=== PATIENT | male | born 1955 ===

== ENCOUNTER 2021-03-17 20:04 | Inpatient (IN) | payer BC ==
[2021-03-17 21:50] LABS: ANION GAP 20.6 mEq/L (7-13)
[2021-03-17] MEDS ORDERED: Iopamidol 612 MG/ML 100 ML Bottle IVPUSH ONE (22:04)
[2021-03-17] MEDS ORDERED: Sodium Chloride 0.9% 1,000 ML IV ONE (22:38)
--- NOTE | 2021-03-17 23:26 | CT ---
PROCEDURE INFORMATION: Exam: CT Abdomen And Pelvis With Contrast Exam date and time: 03/17/2021 10:18 PM Age: 65 years old Clinical indication: Abdominal pain; Generalized; Patient HX: History of renal stone; Additional info: Hernia TECHNIQUE: Imaging protocol: Computed tomography of the abdomen and pelvis with contrast. Radiation optimization: All CT scans at this facility use at least one of these dose optimization techniques: automated exposure control; mA and/or kV adjustment per patient size (includes targeted exams where dose is matched to clinical indication); or iterative reconstruction. Contrast material: ISOVUE 300; Contrast volume: 100 ml; Contrast route: INTRAVENOUS (IV); COMPARISON: CT Abdomen Pelvis w Cont 10/16/2019 1:25 PM FINDINGS: Liver: There is moderate fatty liver replacement. Gallbladder and bile ducts: See "Pancreas" finding. Pancreas: The pancreatic parenchyma is normal in bulk and sharply marginated. Duct is not dilated. No calcifications, masses, or abnormal fluid collections. Spleen: The spleen is normal in size. No splenic mass or abnormal fluid collection. Adrenal glands: There are no adrenal masses. Kidneys and ureters: Normal in parenchymal bulk. No hydronephrosis or asymmetric perinephric stranding. No solid masses. 3 mm nonobstructing stone right renal sinus. No ureteral calculi. Delayed images of the kidneys show symmetric excretion, homogeneous nephrograms, no collecting system filling defects, and no contrast extravasation. Stomach and bowel: Few mildly dilated small bowel loops are present reaching 3.5 cm. Distal small bowel is decompressed. There is a point of transition in the upper midline abdomen from dilated to decompressed small intestine. Small bowel feces sign immediately precedes the point of transition. Dilated small bowel predominantly in a cluster of small bowel loops anterior to the greater omentum almost reaching to the diaphragm. Small amount of gas and stool within large bowel. Appendix: The appendix is seen. It is normal. Intraperitoneal space: No ascites. No abscess. No inflammation within the intra-abdominal fat. No pneumoperitoneum. No mass. Retroperitoneal space: Powerscribe CT gallbladderSpleen is normal in size. No mass or fluid collection. Vasculature: There is atherosclerotic calcification of the aorto-iliac tree. There is no abdominal aortic aneurysm. Lymph nodes: There are no enlarged celiac, mesenteric, periportal, extraperitoneal or inguinal lymph nodes. Urinary bladder: There is no bladder wall thickening, mass, or calculus. Reproductive: Prostate gland is normal in size. The seminal vesicles are unremarkable. Bones/joints: Age appropriate spondylosis. There are no suspicious lytic or osteosclerotic lesions. There are no vertebral compression fractures. Soft tissues: Soft tissues are unremarkable. IMPRESSION: Findings of small bowel obstruction, possibly from internal hernia.
--- NOTE | 2021-03-18 00:30 | EDM.PDOC ---
ED HPI GENERAL MEDICAL PROBLEM - General Chief Complaint: Abdominal Pain Stated Complaint: STOMACH PAIN, SWEATING. Time Seen by Provider: 03/17/21 20:40 Source of Information: Reports: Patient History Limitations: Reports: No Limitations - History of Present Illness INITIAL COMMENTS - FREE TEXT/NARRATIVE: ED with c/o some bloating, intermittent abdominal pain starting Tuesday. 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 Has had some "sweats" no chills. Abdomen Pain Score (Numeric/FACES): 9 - Related Data Allergies Allergy/AdvReac Type Severity Reaction Status Date / Time No Known Allergies Allergy Verified 03/18/21 01:18 Home Meds: Home Meds Glimepiride [Amaryl] 1 mg PO DAILY 01/14/15 [History] Metoprolol Tartrate [Lopressor] 25 mg PO BID 01/14/15 [History] Sertraline [Zoloft] 100 mg PO DAILY 01/14/15 [History] atorvaSTATin [Lipitor] 40 mg PO BEDTIME 01/14/15 [History] hydroCHLOROthiazide [Hydrochlorothiazide] 25 mg PO DAILY 01/14/15 [History] Canagliflozin [Invokana] 100 mg PO DAILY 12/15/16 [History] Cetirizine HCl [Zyrtec] 10 mg PO DAILY PRN 12/15/16 [History] Liraglutide [Victoza] 1.8 mg SQ DAILY 12/15/16 [History] Losartan [Cozaar] 25 mg PO DAILY 12/15/16 [History] Sildenafil [Viagra] 100 mg PO ASDIRECTED 12/15/16 [History] metFORMIN HCl [Metformin HCl] 1,000 mg PO BIDMEALS 12/15/16 [History] sitaGLIPtin Phosphate [Januvia] 100 mg PO BEDTIME 12/15/16 [History] Past Medical History Cardiovascular History: Reports: High Cholesterol, Hypertension Gastrointestinal History: Reports: Hiatal Hernia Genitourinary History: Reports: Chronic Renal Insuffiency, Other (See Below) Other Genitourinary History: NEPHROLITHIASIS Neurological History: Reports: Other (See Below) Other Neuro History: INSOMNIA Psychiatric History: Reports: Anxiety, Other (See Below) Other Psychiatric History: ALCOHOL HABITUATION Endocrine/Metabolic History: Reports: Diabetes, Type II, Obesity/BMI 30+, Other (See Below) Other Endocrine/Metabolic History: BONE METABOLISM DISORDER Social & Family History - Tobacco Use Tobacco Use Status *Q: Never Tobacco User - Caffeine Use Caffeine Use: Reports: Coffee - Recreational Drug Use Recreational Drug Use: No ED ROS GENERAL - Review of Systems Review Of Systems: Comprehensive ROS is negative, except as noted in HPI. ED EXAM, GI/ABD - Physical Exam Exam: See Below Exam Limited By: No Limitations General Appearance: Alert, Mild Distress, Obese Eyes: Bilateral: EOMI Ears: Normal External Exam, Hearing Loss Nose: Normal Inspection Throat/Mouth: Normal Inspection Head: Atraumatic, Normocephalic Neck: Normal Inspection, Supple Respiratory/Chest: No Respiratory Distress, Lungs Clear, Normal Breath Sounds Cardiovascular: Normal Peripheral Pulses, Regular Rate, Rhythm GI/Abdominal Exam: Distended, Tender (mild left lower), Abnormal Bowel Sounds (decreased lower, tympanic upper) Extremities: Normal Inspection Neurological: Alert, Oriented, Normal Cognition Psychiatric: Normal Affect, Normal Mood Skin Exam: Warm, Dry, Intact, Normal Color #1 Interpretation EKG Date: 03/17/21 Time: 20:19 Rhythm: NSR Rate (Beats/Min): 79 [place]: Normal P-Wave: Present QRS: Normal ST-T: Normal Comparison: NA - No Prior EKG Course - Vital Signs Last Recorded V/S: Last Vital Signs Temp 97.2 F 03/18/21 01:05 Pulse 80 03/18/21 01:05 Resp 18 03/18/21 01:05 BP 90/50 L 03/18/21 01:05 Pulse Ox 97 03/18/21 01:05 - Orders/Labs/Meds Orders: Medication Orders Acetaminophen (Acetaminophen 325 Mg Tab) 650 mg NGTUBE Q4H PRN PRN Reason: Pain (Mild 1-3)/fever Dextrose/Water (50% Dextrose In Water 50 Ml Syringe) 50 ml IV Q15M PRN PRN Reason: Hypoglycemia Docusate Sodium (Docusate Sodium 100 Mg Cap) 200 mg PO BID [facility] Last Admin: 03/18/21 01:52 Dose: Not Given Documented by: [id number] Glucagon (Glucagon,Human Recombinant 1 Mg Vial) 1 mg IM Q15M PRN PRN Reason: Hypoglycemia Heparin Sodium (Porcine) (Heparin Sodium 5,000 Units/Ml Vial) 5,000 units SUBCUT BID [facility] Sodium Chloride (Normal Saline) 1,000 mls @ 100 mls/hr IV ASDIRECTED [facility] Last Admin: 03/18/21 01:42 Dose: 100 mls/hr Documented by: [id number] Insulin Human Lispro (Insulin Lispro 100 Units/Ml 3 Ml Vial) 0 unit SUBCUT Q6H [facility]; Protocol Lorazepam (Lorazepam 2 Mg/Ml Sdv) 0 mg IV TITRATE PRN; Protocol PRN Reason: alcohol withdrawal Ondansetron HCl (Ondansetron 4 Mg/2 Ml Sdv) 4 mg IVPUSH Q4H PRN PRN Reason: Nausea/Vomiting Senna/Docusate Sodium (Docusate Sodium/Sennosides 50-8.6 Mg Tab) 2 tab PO BID [facility] Last Admin: 03/18/21 01:53 Dose: Not Given Documented by: [id number] Sodium Chloride (Sodium Chloride 0.9% 10 Ml Syringe) 10 ml FLUSH ASDIRECTED PRN PRN Reason: Keep Vein Open Labs: Laboratory Tests 03/17/21 03/17/21 03/17/21 Range/Units 21:00 21:00 21:00 WBC 10.0 (5.0-10.0) 10^3/uL RBC 6.32 H (4.6-6.2) 10^6/uL Hgb 19.1 H (14.0-18.0) g/dL Hct 53.3 (40.0-54.0) % MCV 84.3 (80-100) fL MCH 30.2 (27.0-34.0) pg MCHC 35.8 H (33.0-35.0) g/dL Plt Count 130 L (150-450) 10^3/uL Neut % (Auto) 74.0 (42.2-75.2) % Lymph % (Auto) 9.3 L (20.5-50.1) % Woods % (Auto) 15.5 H (2-8) % Eos % (Auto) 0.8 L (1.0-3.0) % Baso % (Auto) 0.4 (0.0-1.0) % Sodium 127 L (136-145) mmol/L Potassium 3.6 (3.5-5.1) mmol/L Chloride 88 L (98-107) mmol/L Carbon Dioxide 22 (21-32) mmol/L Anion Gap 20.6 H (7-13) mEq/L BUN 32 H (7-18) mg/dL Creatinine 1.31 H (0.70-1.30) mg/dL Est Cr Clr Drug Dosing 52.08 mL/min Estimated GFR (MDRD) 55 BUN/Creatinine Ratio 24.4 (No establ ref range) Glucose 146 H (70-99) mg/dL Lactic Acid 1.6 (0.4-2.0) mmol/L Calcium 9.1 (8.5-10.1) mg/dL Magnesium (1.8-2.4) mg/dL Total Bilirubin 2.6 H (0.2-1.0) mg/dL AST 30 (15-37) U/L ALT 60 (16-63) U/L Alkaline Phosphatase 91 (46-116) U/L Troponin I High Sens (<=76) pg/mL B-Natriuretic Peptide 19 (0-100) pg/ml Total Protein 8.2 (6.4-8.2) g/dL Albumin 4.0 (3.4-5.0) g/dL Globulin 4.2 Albumin/Globulin Ratio 1.0 Free T4 (0.76-1.46) ng/dL TSH, Ultra Sensitive (0.36-3.74) uIU/mL SARS-CoV-2 RNA ([facility]) (NEGATIVE) 03/17/21 03/17/21 03/18/21 Range/Units 21:00 21:30 00:10 WBC (5.0-10.0) 10^3/uL RBC (4.6-6.2) 10^6/uL Hgb (14.0-18.0) g/dL Hct (40.0-54.0) % MCV (80-100) fL MCH (27.0-34.0) pg MCHC (33.0-35.0) g/dL Plt Count (150-450) 10^3/uL Neut % (Auto) (42.2-75.2) % Lymph % (Auto) (20.5-50.1) % Woods % (Auto) (2-8) % Eos % (Auto) (1.0-3.0) % Baso % (Auto) (0.0-1.0) % Sodium (136-145) mmol/L Potassium (3.5-5.1) mmol/L Chloride (98-107) mmol/L Carbon Dioxide (21-32) mmol/L Anion Gap (7-13) mEq/L BUN (7-18) mg/dL Creatinine (0.70-1.30) mg/dL Est Cr Clr Drug Dosing mL/min Estimated GFR (MDRD) BUN/Creatinine Ratio (No establ ref range) Glucose (70-99) mg/dL Lactic Acid (0.4-2.0) mmol/L Calcium (8.5-10.1) mg/dL Magnesium 1.8 (1.8-2.4) mg/dL Total Bilirubin (0.2-1.0) mg/dL AST (15-37) U/L ALT (16-63) U/L Alkaline Phosphatase (46-116) U/L Troponin I High Sens 7 (<=76) pg/mL B-Natriuretic Peptide (0-100) pg/ml Total Protein (6.4-8.2) g/dL Albumin (3.4-5.0) g/dL Globulin Albumin/Globulin Ratio Free T4 1.42 (0.76-1.46) ng/dL TSH, Ultra Sensitive 3.09 (0.36-3.74) uIU/mL SARS-CoV-2 RNA ([facility]) Negative (NEGATIVE) Meds: Medications Generic Name Dose Route Start Last Admin Trade Name Freq PRN Reason Stop Dose Admin Acetaminophen 650 mg 03/18/21 01:05 Acetaminophen 325 Mg Tab NGTUBE Q4H PRN Pain (Mild 1-3)/fever Dextrose/Water 50 ml 03/18/21 01:11 50% Dextrose In Water 50 Ml Syringe IV Q15M PRN Hypoglycemia Docusate Sodium 200 mg 03/18/21 01:15 03/18/21 01:52 Docusate Sodium 100 Mg Cap PO Not Given BID YEISON Glucagon 1 mg 03/18/21 01:11 Glucagon,Human Recombinant 1 Mg Vial IM Q15M PRN Hypoglycemia Heparin Sodium (Porcine) 5,000 units 03/18/21 09:00 Heparin Sodium 5,000 Units/Ml Vial SUBCUT BID [facility] Sodium Chloride 1,000 mls @ 100 mls/hr 03/18/21 01:15 03/18/21 01:42 Normal Saline IV 100 mls/hr ASDIRECTED YE[facility] Administration Insulin Human Lispro 0 unit 03/18/21 06:00 Insulin Lispro 100 Units/Ml 3 Ml Vial SUBCUT Q6H [facility] Protocol Lorazepam 0 mg 03/18/21 01:10 Lorazepam 2 Mg/Ml Sdv IV TITRATE PRN alcohol withdrawal Protocol Ondansetron HCl 4 mg 03/18/21 01:05 Ondansetron 4 Mg/2 Ml Sdv IVPUSH Q4H PRN Nausea/Vomiting Senna/Docusate Sodium 2 tab 03/18/21 01:15 03/18/21 01:53 Docusate Sodium/Sennosides 50-8.6 Mg Tab PO Not Given BID YEISON Sodium Chloride 10 ml 03/18/21 01:05 Sodium Chloride 0.9% 10 Ml Syringe FLUSH ASDIRECTED PRN Keep Vein Open Discontinued Medications Generic Name Dose Route Start Last Admin Trade Name Freq PRN Reason Stop Dose Admin Heparin Sodium (Porcine) 5,000 units 03/18/21 01:15 Heparin Sodium 5,000 Units/Ml Vial SUBCUT Q12H [facility] Sodium Chloride 1,000 mls @ 500 mls/hr 03/17/21 22:38 03/17/21 22:42 Normal Saline IV 03/18/21 00:37 500 mls/hr .BOLUS ONE Administration Insulin Human Lispro 0 unit 03/18/21 01:15 Insulin Lispro 100 Units/Ml 3 Ml Vial SUBCUT Q6H [facility] Protocol Iopamidol 100 ml 03/17/21 22:04 03/17/21 22:17 Iopamidol 612 Mg/Ml 100 Ml Bottle IVPUSH 03/17/21 22:05 100 ml ONETIME ONE Administration Departure - Departure Time of Disposition: 00:31 Disposition: Admitted As Inpatient 68 Condition: Good Clinical Impression: Small bowel obstruction, Hyponatremia - Discharge Information *PRESCRIPTION DRUG MONITORING PROGRAM REVIEWED*: No *COPY OF PRESCRIPTION DRUG MONITORING REPORT IN PATIENT YOON: No Sepsis Event Note (ED) - Evaluation Sepsis Screening Result: No Definite Risk - Focused Exam Vital Signs: Vital Signs Temp Pulse Resp BP Pulse Ox 03/17/21 21:47 79 16 118/79 94 L 03/17/21 20:34 96.4 F L 87 16 132/87 98
[2021-03-18] MEDS ORDERED: Acetaminophen 325 MG Tab NGTUBE PRN (01:05)
[2021-03-18] MEDS ORDERED: Ondansetron 4 MG/2 ML SDV IVPUSH PRN (01:05)
[2021-03-18] MEDS ORDERED: Sodium Chloride 0.9% 10 ML Syringe FLUSH PRN (01:05)
[2021-03-18] MEDS ORDERED: LORazepam 2 MG/ML SDV IV PRN (01:10)
[2021-03-18] MEDS ORDERED: 50% Dextrose in Water 50 ML Syringe IV PRN (01:11)
[2021-03-18] MEDS ORDERED: Glucagon,Human Recombinant 1 MG Vial IM PRN (01:11)
[2021-03-18] MEDS ORDERED: Insulin Lispro 100 Units/ML 3 ML Vial SUBCUT SCH (01:15)
[2021-03-18] MEDS ORDERED: Heparin Sodium 5,000 Units/ML Vial SUBCUT SCH (01:15)
--- NOTE | 2021-03-18 01:15 | PCM.SN.2 ---
- Free Text/Narrative Note: START OF DOCTOR EMAM[facility] HISTORY AND PHYSICAL / CONSULTATION NOTE Chief Complaint: Abdominal pain History of Present Illness: The patient is a 65-year-old male who presents to complain of abdominal pain. He states started 48 hours prior to mission. At that time he developed abdominal cramping which the both gradual onset. He states that his last bowel movement was approximately 40 hours prior to hospitalization as well. He denies diarrhea, melena, hematochezia. He states that he had onset of nausea and multiple episodes of emesis. He also admits to onset of fever denies rigors. He denies dysuria. The patient denies frequent NSAID use. He presents for further evaluation Surgical History: Abdominal surgery is a youth for a "twisted stomach" Family History: Diabetes, coronary artery disease, hypertension, hyperlipidemia Social History: Tobacco: Former smoker Alcohol: The patient drinks at least 4 glasses of hard liquor nightly Caffeine: Coffee Drugs: Never Allergies: No known drug allergies Code Status: Full Pertinent Laboratory Results / Pertinent Radiology Results / Pertinent Diagnostic Results / Pertinent Vital Signs: Blood pressure 103/60, pulse 88, respiration 20, temperature 96.4 degrees, 9 5% room air, sodium 127, creatinine 1.31, hemoglobin 19.1, platelet count 130,000 Physical Examination: General: -Alert -No acute distress -No dyspnea -No tachypnea -Obese Head: -Atraumatic -Normocephalic Eyes: -Pupils equally round and reactive to light and accommodation -Extraocular muscles intact Neurological: -Cranial nerves II-XII intact Neck: -No jugular venous distention -No thyromegaly -No cervical lymphadenopathy Heart: -Regular rate -Regular rhythm -No murmurs -No gallops -No rubs Lungs: -No wheeze -No rhonchi -No rales Abdomen: -Hypoactive bowel sounds in all four quadrants -No rebound -No guarding -Periumbilical tenderness present -Abdomen distended Extremities: -2/4 pulse in all four extremities -No clubbing -No cyanosis -No edema -No calf tenderness present bilaterally -Negative Homans sign bilaterally Musculoskeletal: -5/5 bilateral upper extremity strength -5/5 bilateral lower extremity strength -Sensorium of bilateral upper extremities are equal and intact -Sensorium of bilateral lower extremities are equal and intact Additional Details / Additional Findings / Exceptions / Miscellaneous: Assessment / Plan: Small bowel obstruction. N.p.o. except medications. Nasogastric tube to low intermittent suction. IV normal saline 100 mL/h plus Colace 200 mg p.o. twice daily plus senna 17.2 mg p.o. twice daily Acute renal insufficiency. Will monitor creatinine level intermittently. IV normal saline at 100 mL/h Hyponatremia. Will monitor sodium levels intermittently. IV normal saline at 100 mL/h Erythrocytosis. Will monitor hemoglobin level intermittently. IV normal saline 100 mL/h Seasonal allergies Neuropathy Depression Erectile dysfunction Diabetes. Will check fasting glucose every 6 hours and provide insulin sign scale Hyperlipidemia Hypertension Obesity. Patient will be counseled regarding lifestyle modification Alcohol abuse. Seizure precautions. IV as needed Ativan per [facility] protocol Thrombocytopenia. We will monitor platelet count intermittently Hepatic steatosis Nephrolithiasis Insomnia Anxiety Diverticulosis Overactive bladder DVT prophylaxis. Heparin 5000 units subcutaneously every 12 hours Disposition: Anticipate discharge in 48 to 96 hours. At the time of admission, the patient's home medications were not yet inputted to the EMR/DHR system. Once they are, they will be reviewed and reconciled END OF DOCTOR EMAMIS HISTORY AND PHYSICAL / CONSULTATION NOTE
[2021-03-18] MEDS: Sodium Chloride 0.9% 1,000 ML IV SCH ×3 (01:42→21:32)
[2021-03-18] MEDS: Docusate Sodium 100 MG Cap PO SCH ×3 (01:52→21:34)
[2021-03-18] MEDS: Insulin Lispro 100 Units/ML 3 ML Vial SUBCUT SCH ×3 (06:42→18:45)
--- NOTE | 2021-03-18 07:10 | CR ---
PROCEDURE INFORMATION: Exam: XR Abdomen Exam date and time: 03/18/2021 5:35 AM Age: 65 years old Clinical indication: Device placement; Gi device; Nasogastric tube; Additional info: Confirm ng/og tube placement TECHNIQUE: Imaging protocol: XR of the abdomen. Views: Frontal supine view of the abdomen. 1 View. COMPARISON: CT Abdomen Pelvis w Cont 03/17/2021 10:18 PM FINDINGS: Tubes, catheters and devices: Interval appearance of the enteric tube with its tip in the proximal gastric body. Gastrointestinal tract: No apparent bowel dilatation. Bones/joints: Spurring at multiple disc levels and probable narrowing of some of the discs. IMPRESSION: Interval appearance of the enteric tube with its tip in the gastric body. Other findings detailed above.
--- NOTE | 2021-03-18 07:13 | CR ---
PROCEDURE INFORMATION: Exam: XR Chest Exam date and time: 03/18/2021 5:35 AM Age: 65 years old Clinical indication: Device placement; Ng tube; Additional info: Id if the tube is coiled TECHNIQUE: Imaging protocol: XR of the chest. Views: 1 view. COMPARISON: No relevant prior studies available. FINDINGS: Tubes, catheters and devices: Extension of the non-coiled enteric tube into the upper abdomen with its tip not included. Lungs: Unremarkable. No consolidation. Pleural spaces: No pneumothorax or apparent pleural fluid. Heart/Mediastinum: Heart size within normal limits. Bones/joints: No suggestion of acute bony disease. IMPRESSION: 1. Extension of the enteric tube below the diaphragm with its tip not included. See the abdominal x-ray report for correlation. 2. No acute cardiopulmonary disease.
[2021-03-18 07:17] LABS: ANION GAP 17.2 mEq/L (7-13); CHLORIDE,CL 94 mmol/L (98-107); SODIUM,NA 133 mmol/L (136-145)
--- NOTE | 2021-03-18 07:59 | PCM.SN.2 ---
- Free Text/Narrative Note: START OF DOCTOR [facility] PROGRESS NOTE Subjective: the patient Bernard that he had a large bowel movement this morning. He also indicates that he did not require any Ativan for which I will verify with the nursing staff. Overnight the patient denies fever, rigors, nausea, vomiting, cough, wheeze. He states that his abdominal pain has improved. I explained to the patient his current medical condition and plan of care and have answered all of his questions Objective: General: -Alert -No acute distress -No dyspnea -No tachypnea -Obese Heart: -iRegular rate -Regular rhythm -No murmurs -No gallops -No rubs Lungs: -No wheeze -No rhonchi -No rales Abdomen: -Hypoactive bowel sounds in all four quadrants -No rebound -No guarding -Mild periumbilical tenderness present -Abdomen distended Extremities: -2/4 pulse in all four extremities -No clubbing -No cyanosis -No edema Additional Details / Additional Findings / Exceptions / Miscellaneous: Pertinent Laboratory Results / Pertinent Radiology Results / Pertinent Diagnostic Results / Pertinent Vital Signs: Heart rate 103, platelet count 113,000, sodium 133, potassium 3.2 Assessment / Plan: Small bowel obstruction. N.p.o. except medications. Nasogastric tube to low intermittent suction. IV normal saline 100 mL/h plus Colace 200 mg p.o. twice daily plus senna 17.2 mg p.o. twice daily Hypokalemia. Will monitor potassium levels intermittently and supplement as necessary Acute renal insufficiency. Will monitor creatinine level intermittently. IV normal saline at 100 mL/h Hyponatremia. Will monitor sodium levels intermittently. IV normal saline at 100 mL/h Erythrocytosis. Will monitor hemoglobin level intermittently. IV normal saline 100 mL/h Seasonal allergies Neuropathy Depression. Zoloft 100 mg p.o. daily Erectile dysfunction Diabetes. Will check fasting glucose every 6 hours and provide insulin sign scale Hyperlipidemia. Lipitor 40 mg p.o. nightly Hypertension. Hydrochlorothiazide 25 mg p.o. daily plus Cozaar 25 mg p.o. daily plus metoprolol 25 mg p.o. twice daily Obesity. Patient will be counseled regarding lifestyle modification Alcohol abuse. Seizure precautions. IV as needed [facility]ivan per [facility] protocol Thrombocytopenia. We will monitor platelet count intermittently Hepatic steatosis Nephrolithiasis Insomnia Anxiety Diverticulosis Overactive bladder DVT prophylaxis. Heparin 5000 units subcutaneously every 12 hours Disposition: Anticipate discharge in 24 to 72 hours END OF DOCTOR EMAM[facility] PROGRESS NOTE
[2021-03-18] MEDS ORDERED: Non-Formulary Medication 1 Each (Sertraline [Zoloft] 100 MG Tablet) PO SCH (09:00)
[2021-03-18] MEDS: Losartan 25 MG Tab PO SCH (09:28)
[2021-03-18] MEDS: Hydrochlorothiazide 25 MG Tab PO SCH (09:29)
[2021-03-18] MEDS: Potassium Chloride 10 MEQ Tab.ER PO SCH ×2 (09:29→12:46)
[2021-03-18] MEDS: Heparin Sodium 5,000 Units/ML Vial SUBCUT SCH ×2 (09:29→21:35)
[2021-03-18] MEDS: Metoprolol Tartrate 25 MG Tab PO SCH ×2 (09:30→21:37)
[2021-03-18] MEDS ORDERED: Famotidine 20 MG/2 ML SDV IVPUSH PRN (13:19)
[2021-03-18] MEDS: Benzocaine/Cetylpyridinium/Menthol Lozenge MUCMEM PRN ×4 (14:39→21:45)
[2021-03-18] MEDS ORDERED: Non-Formulary Medication 1 Each (Atorvastatin [Lipitor] 40 MG Tab) PO SCH (21:00)
[2021-03-18] MEDS ORDERED: Acetaminophen 325 MG Tab PO PRN (22:00)
[2021-03-19] MEDS: Insulin Lispro 100 Units/ML 3 ML Vial SUBCUT SCH ×4 (00:42→17:29)
[2021-03-19] MEDS: Benzocaine/Cetylpyridinium/Menthol Lozenge MUCMEM PRN ×2 (03:34→09:32)
[2021-03-19] MEDS: Sodium Chloride 0.9% 1,000 ML IV SCH ×2 (06:40→16:52)
[2021-03-19 07:03] LABS: ANION GAP 16.7 mEq/L (7-13); CHLORIDE,CL 98 mmol/L (98-107); SODIUM,NA 137 mmol/L (136-145)
--- NOTE | 2021-03-19 08:18 | PCM.SN.2 ---
- Free Text/Narrative Note: START OF DOCTOR [facility] PROGRESS NOTE Subjective: The patient states that his abdominal pain has resolved. Overnight he denies fever, rigors, nausea, vomiting, cough, wheeze, dyspnea, or any other constitutional complaints. I explained to the patient his current medical condition and plan of care and I have answered all of his questions Objective: General: -Alert -No acute distress -No dyspnea -No tachypnea -Obese Heart: -Regular rate -Regular rhythm -No murmurs -No gallops -No rubs Lungs: -No wheeze -No rhonchi -No rales Abdomen: -Normal bowel sounds in all four quadrants -No rebound -No guarding -No tenderness -Abdomen less distended compared to March 18, 2021 -Large ventral hernia present Extremities: -2/4 pulse in all four extremities -No clubbing -No cyanosis -No edema Additional Details / Additional Findings / Exceptions / Miscellaneous: Pertinent Laboratory Results / Pertinent Radiology Results / Pertinent Diagnostic Results / Pertinent Vital Signs: Vital signs stable, platelet count 121,000 Assessment / Plan: Small bowel obstruction. N.p.o. except medications. Nasogastric tube to low intermittent suction. IV normal saline 100 mL/h plus Colace 200 mg p.o. twice daily plus senna 17.2 mg p.o. twice daily Hypokalemia. Will monitor potassium levels intermittently and supplement as necessary Acute renal insufficiency. Will monitor creatinine level intermittently. IV normal saline at 100 mL/h Hyponatremia. Will monitor sodium levels intermittently. IV normal saline at 100 mL/h Erythrocytosis. Will monitor hemoglobin level intermittently. IV normal saline 100 mL/h Seasonal allergies Neuropathy Depression. Zoloft 100 mg p.o. daily Erectile dysfunction Diabetes. Will check fasting glucose every 6 hours and provide insulin sign scale Hyperlipidemia. Lipitor 40 mg p.o. nightly Hypertension. Hydrochlorothiazide 25 mg p.o. daily plus Cozaar 25 mg p.o. daily plus metoprolol 25 mg p.o. twice daily Obesity. Patient will be counseled regarding lifestyle modification Alcohol abuse. Seizure precautions. IV as needed Ativan per [facility] protocol Thrombocytopenia. We will monitor platelet count intermittently Hepatic steatosis Nephrolithiasis Insomnia Anxiety Diverticulosis Overactive bladder DVT prophylaxis. Heparin 5000 units subcutaneously every 12 hours Disposition: KUB will be performed today and I will check with the nursing staff regarding NG tube output. If KUB demonstrates small bowel obstruction resolution and if patient has minimal NG tube output, will remove his NG tube, start clear liquid dietadvance as tolerated, and the patient may potentially be okay for discharge on this day of March 19, 2021 END OF DOCTOR [facility] PROGRESS NOTE
--- NOTE | 2021-03-19 08:36 | CR ---
PROCEDURE INFORMATION: Exam: XR Abdomen Exam date and time: 03/19/2021 8:28 AM Age: 65 years old Clinical indication: Other: Follow up sbo; Additional info: Pain, ng tube TECHNIQUE: Imaging protocol: XR of the abdomen. Views: Frontal supine view of the abdomen. 1 View. COMPARISON: CR Abdomen 1V Upright 03/18/2021 5:35 AM FINDINGS: Tubes, catheters and devices: Nasogastric tube tip is in stable position, within the left upper quadrant (in the gastric body). Lungs: Lung bases are clear. Gastrointestinal tract: Nonobstructive bowel gas pattern. Mild constipation. Intraperitoneal space: No free air. Bones/joints: No acute skeletal abnormality or aggressive osseous lesion. IMPRESSION: Stable position to the nasogastric tube, as detailed above.
[2021-03-19] MEDS: Docusate Sodium 100 MG Cap PO SCH (09:31)
[2021-03-19] MEDS: Hydrochlorothiazide 25 MG Tab PO SCH (09:32)
[2021-03-19] MEDS: Metoprolol Tartrate 25 MG Tab PO SCH (09:33)
[2021-03-19] MEDS: Losartan 25 MG Tab PO SCH (09:33)
[2021-03-19] MEDS: Heparin Sodium 5,000 Units/ML Vial SUBCUT SCH (09:35)
--- NOTE | 2021-03-19 18:43 | PCM.SN.2 ---
- Free Text/Narrative Note: START OF DOCTOR [facility]AM[facility] DISCHARGE SUMMARY Date of Admission: March 18, 2021 Date of Discharge: 6:41 PM on March 19, 2021 Primary Diagnosis: Small bowel obstruction, resolved Secondary Diagnosis: Hypokalemia, resolved Acute renal insufficiency, resolved Hyponatremia, resolved Erythrocytosis, resolved Seasonal allergies Neuropathy Depression Erectile dysfunction Diabetes Hyperlipidemia Hypertension Obesity Alcohol abuse Thrombocytopenia Hepatic steatosis Nephrolithiasis Insomnia Anxiety Diverticulosis Overactive bladder Consultations: None Condition on Discharge: Fair Disposition: The patient will be vies to follow-up with his primary care physician or provider as needed Upon discharge, the patient should be provided with literature for referral for alcohol rehabilitation Discharge Medications: Januvia 50 mg p.o. daily Viagra 100 mg p.o. daily as needed erectile dysfunction Ozempic 1 mg subcutaneously q. 7 days Metformin 1000 mg p.o. twice daily Cymbalta 60 mg p.o. daily Zyrtec 10 mg p.o. daily as needed seasonal allergy symptoms Invokana 1 mg p.o. daily Lipitor 10 mg p.o. nightly Zoloft 100 mg p.o. daily Metoprolol 25 mg p.o. twice daily Cozaar 25 mg p.o. daily Hydrochlorothiazide 25 mg p.o. daily Docusate/senna: 2 tabs p.o. twice daily. Quantity 20. 0 refills END OF DOCTOR EMAM[facility] DISCHARGE SUMMARY
[2021-03-19 22:54] VITALS: BP 127/72; PULSE 85
== END 2021-03-19 19:55 | disposition home or self-care (01) | DRG 247 ==
LOC: DL.ED 20:04 → DL.MS 03-18 00:27
PROVIDERS: ADMIT Internal Medicine; ATTEND Internal Medicine
DX: K56.609 Unspecified intestinal obstruction, unspecified as to partial versus complete obstruction (principal); E87.1 Hypo-osmolality and hyponatremia; D75.1 Secondary polycythemia; J30.2 Other seasonal allergic rhinitis; F32.9 Major depressive disorder, single episode, unspecified; E11.42 Type 2 diabetes mellitus with diabetic polyneuropathy; E78.5 Hyperlipidemia, unspecified; Z20.822 Contact with and (suspected) exposure to COVID-19; D69.6 Thrombocytopenia, unspecified; K76.0 Fatty (change of) liver, not elsewhere classified; G47.00 Insomnia, unspecified; N52.9 Male erectile dysfunction, unspecified; F10.10 Alcohol abuse, uncomplicated; N32.81 Overactive bladder; E78.00 Pure hypercholesterolemia, unspecified; N18.9 Chronic kidney disease, unspecified; I12.9 Hypertensive chronic kidney disease with stage 1 through stage 4 chronic kidney disease, or unspecified chronic kidney disease; E11.22 Type 2 diabetes mellitus with diabetic chronic kidney disease; E66.9 Obesity, unspecified; Z87.891 Personal history of nicotine dependence; Z28.82 Immunization not carried out because of caregiver refusal; Z79.899 Other long term (current) drug therapy; Z79.84 Long term (current) use of oral hypoglycemic drugs; Z68.34 Body mass index [BMI] 34.0-34.9, adult
CPT/HCPCS: 36415; 71045; 74018; 74177; 80048; 80053; 82272; 82947; 83605; 83735; 83880; 84439; 84443; 84484; 85025; 93005; 93010; 99284; 99285-25; A9270-GY; J1644; J3490; J7030; Q9967; U0002

== ENCOUNTER 2023-06-21 06:46 | Day surgery (SDC) | payer BC, MEDICARE ==
[2023-06-21] MEDS ORDERED: fentaNYL 100 MCG/2 ML SDV IV ONE ×3 (06:47→07:39)
[2023-06-21] MEDS ORDERED: Midazolam 1 MG/ML 2 ML SDV IV ONE ×3 (06:47→07:40)
[2023-06-21] MEDS ORDERED: Midazolam 1 MG/ML 2 ML SDV ONE (06:54)
[2023-06-21] MEDS ORDERED: fentaNYL 100 MCG/2 ML SDV ONE (06:55)
[2023-06-21] MEDS ORDERED: Dextrose 5%-0.45% NaCl 1,000 ML IV SCH (07:00)
[2023-06-21 10:19] VITALS: BP 122/68; PULSE 80
== END 2023-06-21 09:20 | disposition home or self-care (01) ==
LOC: DL.ENDO 06:46
PROVIDERS: ATTEND Internal Medicine Gastroenterology
DX: K31.7 Polyp of stomach and duodenum (principal); F10.90 Alcohol use, unspecified, uncomplicated; R79.89 Other specified abnormal findings of blood chemistry; E66.09 Other obesity due to excess calories; I10 Essential (primary) hypertension; E78.5 Hyperlipidemia, unspecified; E11.9 Type 2 diabetes mellitus without complications; E83.119 Hemochromatosis, unspecified; G47.00 Insomnia, unspecified; F41.1 Generalized anxiety disorder; K43.9 Ventral hernia without obstruction or gangrene; D69.6 Thrombocytopenia, unspecified; Z87.442 Personal history of urinary calculi; Z86.010 Personal history of colon polyps; Z87.2 Personal history of diseases of the skin and subcutaneous tissue; Z86.31 Personal history of diabetic foot ulcer; Z68.32 Body mass index [BMI] 32.0-32.9, adult
CPT/HCPCS: 43239; 87077; J2250; J3010; J7042

== ENCOUNTER 2023-06-22 06:26 | Day surgery (SDC) | payer BC, MEDICARE ==
[~2023-06-22 06:26] MED LIST: Dextrose 5%-0.45% NaCl 1,000 ML IV SCH
[2023-06-22] MEDS ORDERED: Midazolam 1 MG/ML 2 ML SDV IV ONE ×7 (06:27→07:06)
[2023-06-22] MEDS ORDERED: fentaNYL 100 MCG/2 ML SDV IV ONE ×3 (06:27→06:54)
[2023-06-22] MEDS ORDERED: fentaNYL 100 MCG/2 ML SDV ONE (06:51)
[2023-06-22] MEDS ORDERED: Midazolam 1 MG/ML 2 ML SDV ONE (06:51)
[2023-06-22 09:39] VITALS: PULSE 93
[2023-06-22 09:40] VITALS: BP 122/70
== END 2023-06-22 09:10 | disposition home or self-care (01) ==
LOC: DL.ENDO 06:26
PROVIDERS: ATTEND Internal Medicine Gastroenterology
DX: Z12.11 Encounter for screening for malignant neoplasm of colon (principal); D12.3 Benign neoplasm of transverse colon; D12.2 Benign neoplasm of ascending colon; K64.8 Other hemorrhoids; E66.01 Morbid (severe) obesity due to excess calories; I10 Essential (primary) hypertension; E78.5 Hyperlipidemia, unspecified; E11.9 Type 2 diabetes mellitus without complications; G47.00 Insomnia, unspecified; F41.1 Generalized anxiety disorder; K43.9 Ventral hernia without obstruction or gangrene; D69.6 Thrombocytopenia, unspecified; Z90.89 Acquired absence of other organs; Z98.890 Other specified postprocedural states; Z68.32 Body mass index [BMI] 32.0-32.9, adult; Z79.899 Other long term (current) drug therapy
CPT/HCPCS: 45385; J2250; J3010; J7042

== ENCOUNTER 2024-09-23 15:21 | Emergency (ER) | payer MEDICARE, OTHER ==
[2024-09-23] MEDS ORDERED: Lidocaine 1% 5 ML VIAL ONE (16:23)
[2024-09-23] MEDS: cefTRIAXone 1 GM, Lidocaine 1% 2.1 ML IM ONE (16:25)
[2024-09-23 16:43] VITALS: BP 114/70; PULSE 76
== END 2024-09-23 16:43 | disposition home or self-care (01) ==
LOC: DL.ED 15:21
DX: S51.012A Laceration without foreign body of left elbow, initial encounter (principal); I12.9 Hypertensive chronic kidney disease with stage 1 through stage 4 chronic kidney disease, or unspecified chronic kidney disease; E78.5 Hyperlipidemia, unspecified; N18.9 Chronic kidney disease, unspecified; E78.00 Pure hypercholesterolemia, unspecified; E11.22 Type 2 diabetes mellitus with diabetic chronic kidney disease; E66.9 Obesity, unspecified; Z79.84 Long term (current) use of oral hypoglycemic drugs; Z79.899 Other long term (current) drug therapy; W26.8XXA Contact with other sharp object(s), not elsewhere classified, initial encounter
CPT/HCPCS: 12001; 73080; 96372; 99283; J0696; J3490